=== PATIENT | female | born 1970 | race Caucasian/White ===

== ENCOUNTER 2021-02-25 06:35 | Day surgery (SDC) | payer OTHER ==
[~2021-02-25] VITALS: Ht 162.6 cm; Wt 86.3 kg
[~2021-02-25 06:35] MED LIST: ALL DAY ALLERGY10 M3 PO; FAMOTIDINE40 MG PO; FLONASE ALLERG9.9 ML NAS; MONO-LINYAH1 EACH PO
--- NOTE | 2021-02-25 07:53 | NUR ---
02/25/21 Hang3 Deloris Weldon 9338-PATIENT ARRIVED TO PACU ON 2L NC RR EVEN IVF INFUSING. LAYING LEFT LATERAL. PATIENT REACTIVE TO VERBAL STIMULI VERY DROWSY DENIES PAIN OR NAUSEA. ENCOURAGED TO PASS GAS. ABDOMEN SOFT. PATIENT DOZES BACK TO SLEEP.
--- NOTE | 2021-02-25 08:36 | OR ---
[facility] [address] [place], [place] [address] Signed DATE OF OPERATION: 02/25/2021 SURGEON: Disha Krueger MD PREOPERATIVE DIAGNOSIS: Screening. POSTOPERATIVE DIAGNOSES: 1. Minimal sigmoid diverticulosis. 2. A 10 mm polyp at 10 cm/rectum (snare/tattoo). ROCEDURE: Colonoscopy with snare polypectomy, hot biopsy and injection of tattoo. ESTIMATED BLOOD LOSS: None. INDICATIONS: Fabiola is a 50-year-old female, who was asked to see me for a screening colonoscopy. She has no lower GI complaints. There is no family history of colon cancer or polyps. She had delayed for a year or so because of the COVID pandemic. In the office, I had given her a pamphlet on colonoscopy. She understands the nature of that test. There is risk including, but not limited to gas bloating, crampy abdominal pain, bleeding, perforation requiring surgery, and missed diagnosis. We also discussed the need for IV conscious sedation. She had expressed understanding and wished to proceed. PROCEDURE NOTE: Fabioal was taken into our endoscopy suite and placed in the left lateral decubitus position. She was given 10 mg of Versed and 200 mcg of fentanyl to cover the whole case. A digital rectal exam was performed and this was unremarkable. The adult colonoscope was introduced and advanced quite readily up into the cecum itself. Her prep was quite excellent. We could easily see the appendiceal orifice and the ileocecal valve. The scope was then slowly withdrawn. She had a few diverticula in her mid sigmoid colon. They are small in size, few in number, and scattered about in the mid sigmoid colon. In the top of her rectum at 12 cm, there was a 10 mm polyp. Almost the entire polyp had been removed with the snare. That was suctioned onto our scope and removed for pathologic review. We then removed the base of the polyp with the help of the hot biopsy forceps. We placed a small tattoo then at the base of that polyp to ulises its location. After this, the scope had been retroflexed and there was no additional pathology noted above the anal canal. After this, the gas was suctioned out and the Electronically Signed By: DISHA KRUEGER MD 02/25/21 0836 PATIENT NAME: FABIOLA LAWRENCE OPERATIVE REPORT DATE OF : 68 REPORT #: [id number] PHYSICIAN: DISHA KRUEGER MD PCP: VON BRAND MD REPORT IS CONFIDENTIAL AND NOT TO BE RELEASED WITHOUT AUTHORIZATION [address] [address] Signed colonoscope removed. Fabiola tolerated the procedure quite well. RECOMMENDATIONS: I will see Fabiola back in my office in 7 to 14 days to review her results. MD RM Vidales/ALYSIA /[id number] cc: MD Von Vidales MD Copies: DISHA KRUEGER MD ~ Electronically Signed By: DISHA KRUEGER MD 02/25/21 0836 PATIENT NAME: MELINDAFABIOLASIMON MONDRAGONWAJULIETTE OPERATIVE REPORT DATE OF : 68 REPORT #: [id number] PHYSICIAN: DISHA KRUEGER MD PCP: VON BRAND MD REPORT IS CONFIDENTIAL AND NOT TO BE RELEASED WITHOUT AUTHORIZATION
--- NOTE | 2021-02-26 10:51 | PATH ---
[facility] [address] [place], [place] [address] Signed SPECIMEN(S): A POLYP AT 12 CM SPECIMEN SOURCE: A. POLYP AT 12 CM CLINICAL HISTORY: Screening colonoscopy FINAL PATHOLOGIC DIAGNOSIS: Colon, polyp at 12 cm, polypectomy: - Fragments of tubular adenoma. - Negative for high-grade dysplasia or malignancy. NAL:smn:C2NR MICROSCOPIC EXAMINATION: Histologic sections of all submitted blocks are examined by light microscopy. These findings, together with the gross examination, support the pathologic diagnosis. GROSS DESCRIPTION: The specimen, labeled "Genaro Lawrence, #1 polyp at 12 cm," is received in formalin and consists of nine red-martínez soft tissue fragments that measure 0.1 to 0.8 cm in greatest dimension. The largest tissue fragment is inked and sectioned. The specimen is entirely submitted in cassette (A1-A2). FB (under the direct supervision of a pathologist) The Gross Description was prepared using a voice recognition system. The report was reviewed for accuracy; however, sound-alike word errors, addition and/or deletions may occur. If there is any question about this report, please contact Client Services. PERFORMING LABORATORY: The technical component was performed by [facility], [address] [place] [id number] (Ergonomic Specialist: Vandana Nash MD; CLIA# [id number]). [facility], [address] [address] (CLIA# [id number]). Diagnostician: Carrie Bradley MD Pathologist Electronically Signed 02/26/2021 PATIENT NAME: GENARO LAWRENCE PATHOLOGY DATE OF : 68 REPORT #: [id number] PHYSICIAN: [facility] PCP: VON BRAND MD REPORT IS CONFIDENTIAL AND NOT TO BE RELEASED WITHOUT AUTHORIZATION [address] [address] Signed Copies: ~ PATIENT NAME: GENARO LAWRENCE PATHOLOGY DATE OF : 68 REPORT #: [id number] PHYSICIAN: [facility] PCP: VON BRAND MD REPORT IS CONFIDENTIAL AND NOT TO BE RELEASED WITHOUT AUTHORIZATION
== END 2021-02-25 08:50 | disposition home or self-care (01) ==
LOC: DS 06:35 → OPS 06:35 → DS 06:45 → OPS 08:50
PROVIDERS: ATTEND Colon & Rectal Surgery
PROC: 3E0H8KZ Introduction of Other Diagnostic Substance into Lower GI, Via Natural or Artificial Opening Endoscopic (ICD-10-PCS; 2021-02-25)
PROC: 0DBP8ZX Excision of Rectum, Via Natural or Artificial Opening Endoscopic, Diagnostic (ICD-10-PCS; principal; 2021-02-25 06:45)
DX: Z12.11 Encounter for screening for malignant neoplasm of colon (principal); K57.30 Diverticulosis of large intestine without perforation or abscess without bleeding; D12.7 Benign neoplasm of rectosigmoid junction; Z88.1 Allergy status to other antibiotic agents; Z88.2 Allergy status to sulfonamides; Z88.5 Allergy status to narcotic agent
CPT/HCPCS: 99153; G0500; J2250; J3010; J7121